=== PATIENT | male | born 1995 | race Caucasian/White ===

== ENCOUNTER 2024-11-17 16:37 | Emergency (ER) | payer SELFPAY ==
[2024-11-17 16:38] VITALS: BP 183/92; PULSE 88; RESP 16; TEMP 37.3; O2SAT 98
--- NOTE | 2024-11-17 16:56 | W.ED.PSYCHS ---
HPI - Psych General: Chief Complaint: Psychiatric Symptoms Stated Complaint: mhe Time Seen by Provider: 11/17/24 16:38 Source: patient Mode of arrival: ambulatory Limitations: no limitations History of Present Illness: 29-year-old male who is here with police for psychosis along with suicidal ideations police states that he says he is in the site also threatened to kill himself. Patient here does have flight of ideas he states he has been very depressed and has had thoughts of suicide. Associated symptoms: Reports depression and suicidal ideation Related Data Home Medications ?Medication ?Instructions ?Recorded ?Confirmed No Known Home Medications 11/18/24 11/18/24 Allergies Allergy/AdvReac Type Severity Reaction Status Date / Time No Known Allergies Allergy Verified 11/17/24 16:43 Review of Systems Const: Denies: fever(s), chills, body aches or change in appetite ENMT: Denies: throat pain or dental pain Card: Denies: chest pain Resp: Denies: dyspnea GI: Denies: abdominal pain, nausea, vomiting or diarrhea Musc: Denies: neck pain or back pain Skin/Breast: Denies: rash Neuro: Denies: headache(s) Psych: Reports: depression and suicidal ideation Physical Exam Const: COMMON NORMALS: no acute distress, patient oriented x3 and healthy appearing HENMT: COMMON NORMALS: normocephalic and atraumatic HEAD & SCALP: normocephalic and atraumatic Eye: COMMON NORMALS: conjunctivae normal CONJUNCTIVA: Yes conjunctivae normal Neck/C-Spine: COMMON NORMALS: full ROM and supple Chest: COMMONS NORMALS: normal inspection of the chest Resp: COMMON NORMALS: normal respiratory effort Cardio: COMMON NORMALS: regular rate RATE: regular rate Extremity: COMMON NORMALS: normal to inspection and full ROM Neuro: COMMON NORMALS: patient oriented x3, moves all extremities and no focal motor deficits Psych: COMMON NORMALS: mental status grossly normal and cooperative THOUGHT CONTENT: Yes Suicidality present and Yes Hallucination(s) present Skin: COMMON NORMALS: no rashes or lesions noted and no wounds GENERAL SKIN EXAM: no rashes or lesions noted Course Vital Signs: Vital signs: Vital Signs Temperature 98.4 F 11/18/24 03:50 Pulse Rate 61 11/18/24 03:50 Respiratory Rate 11/18/24 03:50 Blood Pressure 144/82 11/18/24 03:50 Pulse Oximetry 98 11/18/24 03:50 Oxygen Delivery Me thod Room Air 11/18/24 03:50 MDM - Psych Medical Decision Making Patient presents here with psychosis along with suicidal ideations patient's medically cleared will transfer to [facility] for higher level of care due to bed availability Medical Records I reviewed the patient's medical records. Lab Data I reviewed the patient's lab results. 11/17/24 17:22 11/17/24 17:22 Laboratory Results WBC 12.41 10^3/uL (3.29-11.43) H 11/17/24 17:22 RBC 5.26 10^6/uL (3.85-5.65) 11/17/24 17:22 Hgb 14.40 g/dL (11.27-16.99) 11/17/24 17:22 Hct 43.7 % (37-53) 11/17/24 17:22 MCV 83.1 fl (82-101) 11/17/24 17:22 MCH 27.4 pg (27-33) 11/17/24 17: MCHC 33.0 g/dL (30-55) 11/17/24 17: RDW 13.0 % (12.1-15.1) 11/17/24 17: Plt Count 329 10^3/cmm (157-399) 11/17/24 17:22 MPV 10.9 fL (7.4-10.4) H 11/17/24 17:22 Neut % (Auto) 87.9 % 11/17/24 17:22 Lymph % (Auto) 7.1 % 11/17/24 17:22 [place] % (Auto) 4.3 % 11/17/24 17:22 Eos % (Auto) 0.1 % 11/17/24 17:22 Baso % (Auto) 0.4 % 11/17/24 17:22 Neut # (Auto) 10.92 10^3/uL (1.8-7.7) H 11/17/24 17:22 Lymph # (Auto) 0.9 10^3/uL (0.8-4.8) 11/17/24 17:22 [place] # (Auto) 0.5 10^3/uL (0.2-0.9) 11/17/24 17:22 Eos # (Auto) 0.0 10^3/uL (0.0-0.8) 11/17/24 17:22 Baso # (Auto) 0.1 10^3/uL (0.0-0.1) 11/17/24 17:22 Nucleated RBC % (auto) 0 % 11/17/24 17:22 Nucleated RBCs # 0.0 /100WBC 11/17/24 17:22 Sodium 139 mmol/L (136-145) 11/17/24 17:22 Potassium 3.4 mmol/L (3.5-5.1) L 11/17/24 17:22 Chloride 101 mmol/L (98-107) 11/17/24 17:22 Carbon Dioxide 22 mmol/L (22-29) 11/17/24 17:22 Anion Gap 19.4 (5-19) H 11/17/24 17:22 BUN 12 mg/dL (6-20) 11/17/24 17:22 Creatinine 0.8 mg/dL (0.7-1.2) 11/17/24 17:22 GFR Calculation 114.3 mL/min (90-130) 11/17/24 17:22 Glucose 121 mg/dL (65-115) H 11/17/24 17:22 Calculated Osmolality 289 mOsm/kg (285-295) 11/17/24 17:22 Calcium 9.6 mg/dL (8.5-10.5) 11/17/24 17:22 Total Bilirubin 0.6 mg/dL (0.15-1.2) 11/17/24 17:22 AST 15 U/L (0-40) 11/17/24 17:22 ALT 12 U/L (0-41) 11/17/24 17:22 Alkaline Phosphatase 71 U/L (40-130) 11/17/24 17:22 Total Protein 7.5 g/dL (6.6-8.7) 11/17/24 17:22 Albumin 4.9 g/dL (3.5-5.2) 11/17/24 17:22 Globulin 2.6 g/dL (1.3-4.6) 11/17/24 17:22 Urine Color Dark yellow (Yellow) A 11/18/24 05:49 Urine Appearance Clear (CLEAR) 11/18/24 05:49 Urine pH 6.5 (5-7) 11/18/24 05:49 Ur Specific [place] 1.035 (1.005-1.030) H 11/18/24 05:49 Urine Protein 1+ (Negative) A 11/18/24 05:49 Urine Glucose (UA) Negative (Normal) 11/18/24 05:49 Urine Ketones Trace (Negative) 11/18/24 05:49 Urine Blood Negative (Negative) 11/18/24 05:49 Urine Nitrate Negative (Negative) 11/18/24 05:49 Urine Bilirubin Negative (Negative) 11/18/24 05:49 Urine Urobilinogen 1.0 mg/dL (Negative) 11/18/24 05:49 Ur Leukocyte Esterase Negative (Negative) 11/18/24 05:49 Urine RBC 0-2 /hpf (0-2) 11/18/24 05:49 Urine WBC 0-5 /hpf (0-5) 11/18/24 05:49 Ur Squamous Epith Cells 0-5 /hpf (0-5) 11/18/24 05:49 Amorphous Sediment Not Reportable 11/18/24 05:49 Urine Bacteria None seen /hpf (NONE) 11/18/24 05:49 Hyaline Casts 0.81 /lpf 11/18/24 05:49 Salicylates < 0.3 mg/dL (3-10) L 11/17/24 17:22 Urine Opiates Screen Negative ng/mL (Negative) 11/17/24 17:15 Acetaminophen < 5.0 ug/mL (10-30) L 11/17/24 17:22 Ur Barbiturates Screen Negative ng/mL (Negative) 11/17/24 17:15 Ur Phencyclidine Scrn Negative ng/mL (Negative) 11/17/24 17:15 Ur Amphetamines Screen Negative ng/mL (Negative) 11/17/24 17:15 U Benzodiazepines Scrn Negative ng/mL (Negative) 11/17/24 17:15 Urine Cocaine Screen Negative ng/mL (Negative) 11/17/24 17:15 U Marijuana (THC) Screen Positive ng/mL (Negative) H 11/17/24 17:15 Ethyl Alcohol < 10 mg/dL (0-10) 11/17/24 17:22 All radiology interpretation(s) finalized by discharge EKG Data EKG 1: I personally reviewed and interpreted this EKG as follows: EKG interpretation date: 11/17/24 EKG interpretation time: 17:29 Interpretation: nsr hr [address] elevation qrs 112 qtc 393 Discharge Plan Discharge Patient Disposition: Xfer Short-Term Hosp Clinical Impression: Acute psychosis, Suicidal ideation Condition: Stable Print Language: Montserratian Coding Level of Care Code ED Technology Integration Specialist for Don Leigh
--- NOTE | 2024-11-17 17:29 | ECG_ITS ---
[employer] [facility] Test Date: 2024-11-17 Pat Name: Fabiano North Department: Room: Gender: Male Recreation Worker: : 1995 Requested By: Evans Fajardo Order Number: [id number] Sera MD: Roseanna Garcia M.D. Measurements Intervals [place] Rate: 79 P: 78 [place]: 144 QRS: 86 QRSD: 112 T: 85 QT: 359 QTc: 412 Interpretive Statements SINUS RHYTHM INCOMPLETE RIGHT BUNDLE BRANCH BLOCK [90+ ms QRS DURATION, TERMINAL R IN V1/V2, 40+ ms S IN I/aVL/V4/V5/V6] No previous ECG available for comparison Electronically Signed On 11-17-2024 21:50:48 CDT by Roseanna Garcia M.D. [email or web address]
[2024-11-17 17:42] LABS: Basophils # 0.1 10^3/uL (0.0-0.1); Basophils % 0.4 %; Eosinophils % 0.1 %; Hematocrit 43.7 % (37-53); Lymphocytes # 0.9 10^3/uL (0.8-4.8); Lymphocytes % 7.1 %; Mean Corpuscular Hemoglobin 27.4 pg (27-33); Mean Corpuscular Volume 83.1 fl (82-101); Mean Platelet Volume 10.9 fL (7.4-10.4); Monocytes # 0.5 10^3/uL (0.2-0.9); Monocytes % 4.3 %; Neutrophils # 10.92 10^3/uL (1.8-7.7); Neutrophils % 87.9 %; Nucleated Red Blood Cells % 0 %; Platelet Count 329 10^3/cmm (157-399); Red Blood Count 5.26 10^6/uL (3.85-5.65); White Blood Count 12.41 10^3/uL (3.29-11.43)
[2024-11-17 17:46] LABS: Amphetamines Screen Urine Negative (Negative); Barbiturates Screen Urine Negative (Negative); Benzodiazepines Screen Urine Negative (Negative); Cocaine Screen Urine Negative (Negative); Opiate Screen Urine Negative (Negative); PCP Screen Urine Negative (Negative); THC Screen Urine Positive (Negative)
--- NOTE | 2024-11-17 17:59 | PC.NURSE ---
96 hr rights reviewed with pt @8061 with assistance of [facility] chief client officer Jarocho Diaz. All education reviewed at this time. Pt verbalized no questions to HS regarding hold when asked. Pt copy was left with pt. Pt provided a sandwich and water. 1:1 sitter in sight of pt. No further needs at this time.
[2024-11-17 18:06] LABS: Alanine Aminotransferase 12 U/L (0-41); Albumin Level 4.9 g/dL (3.5-5.2); Alkaline Phosphatase 71 U/L (40-130); Anion Gap 19.4 (5-19); Aspartate Amino Transferase 15 U/L (0-40); Blood Urea Nitrogen 12 mg/dL (6-20); Calcium 9.6 mg/dL (8.5-10.5); Carbon Dioxide 22 mmol/L (22-29); Chloride 101 mmol/L (98-107); Globulin 2.6 g/dL (1.3-4.6); Glomerular Filtration Rate 114.3 mL/min (90-130); Glucose 121 mg/dL (65-115); Osmolality Calculated 289 mOsm/kg (285-295); Potassium 3.4 mmol/L (3.5-5.1); Sodium 139 mmol/L (136-145); Total Bilirubin 0.6 mg/dL (0.15-1.2); Total Protein 7.5 g/dL (6.6-8.7)
[2024-11-17 18:13] LABS: Acetaminophen < 5.0 ug/mL (10-30); Alcohol Level < 10 mg/dL (0-10); Salicylate < 0.3 mg/dL (3-10)
--- NOTE | 2024-11-17 18:20 | DCPLANNER ---
Addendum entered by Luna Rg 11/17/24 18:50: [facility] declined for acuity Original Note: faxed packet to [facility] - beds available
[2024-11-18 02:32] VITALS: BP 150/70; PULSE 56; RESP 16; O2SAT 99
[2024-11-18 03:50] VITALS: BP 144/82; PULSE 61; RESP 17; TEMP 36.9; O2SAT 98
[2024-11-18 06:00] LABS: Bilirubin Urine Negative (Negative); Blood Urine Negative (Negative); Glucose Urine UA Negative (Normal); Ketones Urine Trace (Negative); Leukocyte Esterase Urine Negative (Negative); Nitrate Urine Negative (Negative); Protein Urine 1+ (Negative); Urine Appearance Clear (CLEAR); Urine Color Dark Yellow (Yellow); pH Urine 6.5 (5-7)
[2024-11-18 06:06] LABS: Add Urine Microscopic? YES; Bacteria Urine None Seen /hpf; Hyaline Casts Urine 0.81 /lpf; RBC Urine 0-2 /hpf (0-2); Squamous Epithelial Cell Urine 0-5 /hpf (0-5); WBC Urine 0-5 /hpf (0-5)
[2024-11-18 06:14] LABS: Specific Gravity, Urine 1.035 (1.005-1.030)
--- NOTE | 2024-11-18 10:19 | PC.NURSE ---
Patient Sleeping in bed
[2024-11-18 16:40] VITALS: BP 156/93; PULSE 83; RESP 16; O2SAT 100
== END 2024-11-18 18:39 | disposition short-term general hospital (02) ==
PROVIDERS: Emergency Provider Emergency Medicine
DX: F23 Brief psychotic disorder (principal); R45.851 Suicidal ideations
CPT/HCPCS: 36415; 80053; 80306; 80307; 81001; 85025; 93005; 99285